=== PATIENT | male | born 1985 | race Caucasian/White ===

== ENCOUNTER → 2021-06-11 15:10 | Outpatient (CLI) | payer BC, SELFPAY ==
--- NOTE | 2021-06-11 15:22 | MRI_ITS ---
EXAM: MR HEAD WITHOUT AND WITH INTRAVENOUS CONTRAST CLINICAL INDICATION: DIZZINESS Technologist Notes left ear decreased hearing, tinnitus, pain TECHNIQUE: Multiplanar and multisequence MR images of the brain were obtained without and with intravenous contrast. This report was created using [employer] report generation technology. CONTRAST: IV 17cc dotarem COMPARISON: None. FINDINGS: BRAIN AND EXTRA-AXIAL SPACES: Unremarkable. No intra- or extra-axial hemorrhage. No evidence of acute infarct. No intracranial mass or mass effect. There is preservation of the bruno/white matter interface. Posterior fossa structures are unremarkable. Ventricles are appropriate for age. No hydrocephalus. Basal cisterns are patent. SELLA: Unremarkable. Normal sella turcica, pituitary gland, infundibular stalk, optic chiasm and hypothalamus. AUDITORY SYSTEM: Unremarkable. The internal auditory canals are patent. BONES/JOINTS: Unremarkable. No discrete lytic or blastic abnormalities. SINUSES: Unremarkable as visualized. Clear. MASTOID AIR CELLS: Unremarkable as visualized. Clear. ORBITS: Unremarkable as visualized. Both globes, extraocular muscles, optic nerves and retrobulbar fat appear unremarkable. VASCULATURE: Unremarkable as visualized. Normal flow voids in the major intracranial circulation. MRI/Brain W/WO Contrast IMPRESSION: Negative MRI brain without and with intravenous contrast. Electronically Signed: Juwan David MD at 17:08 EST , Service support ,
== END ==
PROVIDERS: Visit Provider Otolaryngology
DX: R42 Dizziness and giddiness (principal)
CPT/HCPCS: 70553; A9575

== ENCOUNTER 2023-03-17 09:15 | Emergency (ER) | payer BC, SELFPAY ==
[2023-03-17 09:18] VITALS: BP 125/82; PULSE 64; RESP 14; TEMP 36.4; O2SAT 98; BMI 26.5
--- NOTE | 2023-03-17 09:22 | EDS_ITS ---
HPI History of Present Illness Chief Complaint: Chest Pain PFS PFS Medical History no medical history Allergy/AdvReac Type Severity Reaction Status Date / Time No Known Allergies Allergy Verified 03/17/23 09:17 Family History no significant family his Surgical History no surgical history Social History Smoking Status: Unknown if ever smoked EXAM Physical Exam Const Vital Signs: 03/17/23 09:18 03/17/23 09:44 03/17/23 11:15 Temperature 97.6 F L Temperature Source Temporal Pulse Rate 64 54 L Respiratory Rate 14 16 Blood Pressure 125/82 H 128/89 H Blood Pressure Mean 96 102 Pulse Ox 98 99 Oxygen Delivery Method Room Air Room Air Room Air Heart Score History: Slightly/Non-Suspicious ECG: Normal Age: </= 45 years Risk Factors: No Risk Factors Troponin: </= Normal Limit Score: 0 MDM MDM MDM Narrative Medical decision making narrative: HISTORY OF PRESENT ILLNESS: 37-year-old male presents with transient chest pain. States that started approximate 4 AM lasted for approximately 12 minutes. He further states he gets intermittent chest discomfort but has no chest pain at this time. Denies family history of heart problems. Denies drug use such as cocaine or methamphetamine. Denies smoking. Denies recent alcohol use. Denies any bleeding diathesis such as hemoptysis. Denies any volume loss such as vomiting or diarrhea The patient denies recent surgery in the last 4 weeks or immobilization in the last 3 days, denies previous diagnosis of DVT or PE, hemoptysis, unilateral leg swelling or malignancy with treatment the last 6 months or palliative. No estrogen use noted. Patient denies sudden onset of pain, no tearing sensation, no migratory symptoms, no new numbness, weakness or loss of sensation. Patient denies family history or personal history of Connective tissue disorders (Marfan's Syndrome, Мария Danlos etc) REVIEW OF SYSTEMS: Pertinent positives: Chest pain Pertinent negatives: Syncope, focal weakness PHYSICAL EXAM: Nursing triage notes reviewed, Vital signs reviewed Constitutional: please see mdm HENT: MMM Eyes: Pupils equal round and reactive to light, Extraocular muscles intact Neck: No stridor, no JVD, full neck ROM no carotid bruits Lungs: Clear to auscultation, No wheezing or rales. No increased work of breathing, no conversational dyspnea, no accessory muscle use, no nasal flaring. No respiratory distress noted Heart: Regular rate and rhythm, No murmurs, No rubs and No gallops, 2+ distal pulses (radial, femoral, posterior tibial) in all extremities Abdomen: Soft, there is no tenderness, rigidity, rebound or guarding, no obvious peritoneal signs, no palpable pulsatile abdominal masses, no auscultated abdominal bruit : No CVAT Extremities: No edema Neuro: No focal neurological deficits, cranial nerves II through XII intact, 5/5 strength in all extremities. Intact sensation to light touch in all extremities, 2+ reflexes bilateral patella tendons. Normal gait. No ataxia. Skin: No rash or lesions noted MEDICAL DECISION MAKING: Chief Complaint: Chest pain External records reviewed: No recent advanced imaging of the chest Factors affecting care: none reported in the medical record ALL IMAGES (IF OBTAINED) HAVE BEEN PERSONALLY REVIEWED AND INTERPRETED BY MYSELF. EKG with normal sinus rhythm, left axis deviation, normal intervals, no STEMI Troponin is negative, no evidence of myocardial ischemia CBC without leukocytosis, severe anemia, no thrombocytopenia. BMP without evidence of significant electrolyte abnormalities, no anion gap, no acute kidney injury. I have personally reviewed the patient's chest x-ray. Chest x-ray is unremarkable for pulmonary edema, pneumothorax, pneumonia or focal cardiopulmonary abnormality. MDM Narrative: The patient was hemodynamically stable, afebrile, nontoxic-appearing. There are no focal cardiopulmonary abnormalities. He had bilateral breath sounds. No carotid bruits. No focal neurologic deficits noted on exam. I considered the following differential diagnosis: ACS, pneumonia, arrhythmia, anemia, electrolyte abnormalities, pneumothorax, PE, aortic dissection Patient is a low risk Wells score and as such have a low suspicion for PE. He had no historical risk factors, no pulse deficits or focal neurologic deficits to suggest aortic dissection. There is no carotid bruits to suggest carotid artery dissection. I obtained a broad lab and imaging work-up to further elucidate the etiology of patient complaint specifically ruling out signs of ACS, pneumonia, pneumothorax, arrhythmia, anemia, electrolyte abnormalities. Labs and images were grossly unremarkable. No clear etiology explain patient's symptoms but is unlikely be life-threatening. I completed a HEART Score to screen for Major Adverse Cardiac Event (MACE) in this patient. The evidence indicates that the patient is very low risk for MACE and this is consistent with my clinical intuition. The risk of further workup or hospitalization for MACE is likely higher than the risk of the patient having a MACE. It is, therefore, in the patient?s best interest not to do additional emergent testing or to be hospitalized for MACE at this time. Shared Decision-Making No hospitalization indicated I have discussed with the patient my clinical impression and the result of the HEART Score to screen for MACE, as well as the risks of further testing and hospitalization. The HEART Score shows that the risk for MACE is less than 1%. Although the risk of MACE has not been completely eliminated, the risks of further testing or hospitalization for MACE likely exceed any potential benefit, and the patient agrees with not pursuing further emergent evaluation or hospitalization for MACE at this time. The patient and/or family, caregivers express understanding. The patient and/or family, caregivers agrees with the plan. Shared decision making: I will have a discussion with the patient and or visitors regarding risk/benefits of further testing or admission. They will be made aware of of the risk/benefits inherent in this decision they will be given the opportunity to voice understanding. Total critical care time today provided was at least 0 [] minutes. This excludes separately billable procedures. Critical care time (if documented) is secondary to the patient having high probability of clinically significant/life threatening deterioration in the patient's condition which required my urgent intervention. Impression: 1. Chest pain Dispo: Discharge Lab Data Labs: Laboratory Results - last 24 hr 03/17/23 03/17/23 09:30 11:36 WBC 5.5 RBC 5.16 Hgb 15.6 Hct 46.1 MCV 89.3 MCH 30.2 MCHC 33.8 RDW Std Deviation 39.6 RDW Coeff of Tri 11.9 Plt Count 215 MPV 9.1 Immature Gran % (Auto) 0.200 Neut % (Auto) 57.9 Lymph % (Auto) 30.8 [place] % (Auto) 9.1 Eos % (Auto) 1.3 Baso % (Auto) 0.7 Absolute Neuts (auto) 3.2 Absolute Lymphs (auto) 1.69 Nucleated RBC % 0 Sodium 140 Potassium 4.0 Chloride 108 H Carbon Dioxide 28.0 Anion Gap 4 L BUN 15 Creatinine 1.05 Estim Creat Clear Calc 100.42 Est GFR (MDRD) Af Amer 102 Est GFR (MDRD) Non-Af 85 BUN/Creatinine Ratio 14.3 Glucose 100 Calcium 8.8 Troponin I High Sens 5 7 Radiography Diagnostic Testing: Clinical Impression(s) from Imaging Studies Chest X-Ray 03/17/23 09:48 IMPRESSION: Normal x-ray examination of the chest. Electronically Signed: Lul Wade MD at 9:58 EDT , Discharge Plan Triage Chief Complaint: Chest Pain ED Provider: Boom Monzon Dx/Rx/DC Orders Clinical Impression: Chest pain Instructions: Chest Pain [facility] Primary Care Provider: Gustavo De La Garza MD Referrals: Gustavo De La Garza MD [Other] Activity Restrictions/Additional Instructions: Thank you for trusting us with your care today! Please take Tylenol (2 pills, 650 mg), ibuprofen (2 pills, 400 mg) every 6 hours as needed for pain and fever control. Please return to the emergency department if your symptoms change or worsen. Specifically if develop worsening chest pain, if you lose consciousness, develop shortness of breath, or if your symptoms change or worsen in any way. Please follow with your primary care physician for further outpatient evaluation and management. Specifically for further outpatient testing including a stress test. Disposition Disposition: Home, Self Care
--- NOTE | 2023-03-17 09:24 | EKG12_ITS ---
Test Reason : CP Blood Pressure : / mmHG Vent. Rate : 064 BPM Atrial Rate : 064 BPM P-R Int : 188 ms QRS Dur : 080 ms QT Int : 380 ms P-R-T Axes : 041 -06 030 degrees QTc Int : 392 ms Normal sinus rhythm with sinus arrhythmia Normal ECG Confirmed by JANET PINO, EKATERINA ([id number]), news editor EDILSON VIDAL ([id number]) on 03/23/2023 10:42:14 AM Referred By: DONNY Confirmed By:DEBBIE GONZALES MD
--- NOTE | 2023-03-17 09:34 | NURSING ---
NO OLD EKG
[2023-03-17 09:38] LABS: Absolute Lymphocyte Count 1.69 X10^3/uL (0.83-4.51); Absolute Neutrophil Count 3.2 X10^3/uL (2.0-7.7); Basophil# 0.04 X10^3/uL; Basophil% 0.7 % (0-1); Eosinophil# 0.07 X10^3/uL; Eosinophils% 1.3 % (0-5); Hematocrit 46.1 % (40-54); Hemoglobin 15.6 g/dL (13.0-16.5); Lymphocyte # 1.69 X10^3/ul (0.83-4.51); Lymphocyte % 30.8 % (19-41); Mean Corp Hgb Conc 33.8 g/dL (32-36); Mean Corpuscular Hgb 30.2 pg (27.0-32.0); Mean Corpuscular Volume 89.3 fL (80-94); Mean Platelet Vol. 9.1 fl (6.2-12.0); Monocyte% 9.1 % (0-10); NRBC Flagged by Analyzer 0 % (0-5); Neutrophil # 3.18 X10^3/uL (2.7-7.7); Neutrophil % 57.9 % (47-70); Platelet Count 215 K/mm3 (150-450); RBC Distribution Width CV 11.9 % (11.6-14.6); RBC Distribution Width SD 39.6 fl (35.1-43.9); Red Blood Count 5.16 M/mm3 (4.6-6.2); White Blood Count 5.5 K/mm3 (4.4-11.0)
[2023-03-17] MEDS: Aspirin 81 MG TAB.CHEW 324 MG PO (09:42)
--- NOTE | 2023-03-17 09:48 | RAD_ITS ---
STUDY: X-RAY CHEST REASON FOR EXAM: Male, 37 years old. Chest pain -- -- episode of chest pain this morning TECHNIQUE: Single AP portable view of the chest. COMPARISON: None. FINDINGS: EKG electrodes are seen. The lungs are clear and expanded. There is no demonstrated pleural abnormality. Normal size heart. Normal mediastinum and sj. Normal visualized pulmonary arteries. Normal visualized aortic arch and descending thoracic aorta. Normal visualized thoracic spine. Normal visualized ribs, clavicles, and shoulders. There is no demonstrated abnormality of the visualized soft tissue structures of the upper abdomen. RAD/Chest 1 View (Portable) IMPRESSION: Normal x-ray examination of the chest. Electronically Signed: Lul Wade MD at 9:58 EDT ,
[2023-03-17 10:03] LABS: Anion Gap 4 (5-15); BUN 15 mg/dL (7-18); BUN/Creat Ratio 14.3 RATIO (10-20); Calcium,Total 8.8 mg/dL (8.5-10.1); Chloride 108 mmol/L (98-107); Creatinine, Serum 1.05 mg/dL (0.70-1.30); EST Glomerular Filtration Rate 85 mL/min (>60); Est Glom Filt Rate - Afr Amer 102 mL/min (>60); Estimated Creatinine Clearance 100.42 ml/min; Glucose 100 mg/dL (74-106); Sodium Level 140 mmol/L (136-145); Troponin-I HS (w/2H Reflex) 5 pg/mL (3.0-78.0)
[2023-03-17 11:15] VITALS: BP 128/89; PULSE 54; RESP 16; O2SAT 99
[2023-03-17 11:34] LABS: Reflex Troponin-HS? (from REC) Y
[2023-03-17 11:59] LABS: Troponin-I HS 7 pg/mL (3.0-78.0)
== END 2023-03-17 12:31 | disposition home or self-care (01) ==
PROVIDERS: Emergency Provider Emergency Medicine; Visit Provider Emergency Medicine
DX: R07.9 Chest pain, unspecified (principal)
CPT/HCPCS: 36415; 71045; 80048; 84484; 85025; 93005; 99285